=== PATIENT | male | born 2000 | race Caucasian/White ===

== ENCOUNTER 2019-06-16 16:22 | Emergency (ER) | payer SELFPAY ==
[~2019-06-16] VITALS: Ht 172.7 cm; Wt 90.7 kg
[2019-06-16 16:47] VITALS: BP 139/81; Ht 172.7 cm; Wt 90.7 kg
== END 2019-06-16 17:38 | disposition home or self-care (01) ==
LOC: ED 16:22
DX: R04.0 Epistaxis (principal); R03.0 Elevated blood-pressure reading, without diagnosis of hypertension